=== PATIENT | male | born 1970 | race Caucasian/White ===

== ENCOUNTER 2018-10-02 17:28 | Emergency (ER) | payer BC ==
[2018-10-02] MEDS ORDERED: Adacel (T-DAP) 0.5 ML SYRINGE ONE (18:08)
[2018-10-02] MEDS ORDERED: Tranexamic Acid 1,000 MG/10 ML VIAL ONE ×2 (18:13→18:57)
[2018-10-02] MEDS ORDERED: Lidocaine 1% PF 5 ML VIAL ONE (18:25)
== END 2018-10-02 19:34 | disposition home or self-care (01) ==
LOC: ERS 17:28
DX: S65.517A Laceration of blood vessel of left little finger, initial encounter (principal); F17.210 Nicotine dependence, cigarettes, uncomplicated; Z23 Encounter for immunization; W26.0XXA Contact with knife, initial encounter
CPT/HCPCS: 12001; 90471; 90715; J2001